=== PATIENT | female | born 1995 | race Caucasian/White ===

== ENCOUNTER 2017-11-27 17:34 | Observation (INO) | payer OTHER ==
[2017-11-27 18:46] LABS: #Lymphocytes 1.9 thou/uL (1.20-3.40); #Monocytes 1.3 thou/uL (0.11-0.59); #Neutrophils 13.3 thou/uL (1.40-6.50); %Basophils 0.2 % (0.0-1.0); %Eosinophils 0.1 % (0.0-10.0); %Lymphocytes 11.6 % (21.0-51.0); %Monocytes 7.7 % (0.0-10.0); %Neutrophils 80.4 % (42.0-75.0); Hemoglobin 12.3 g/dL (12.0-16.0); Mean Corpuscular HGB CONC 35.1 g/dL (32.0-36.0); Mean Corpuscular Volume 94.2 fL (78.0-98.0); Mean Platelet Volume 8.3 fL (7.4-10.4); Platelet Count 158 thou/uL (130-400); RBC Distribution Width 11.7 % (11.5-14.5); Red Blood Cell (RBC) Count 3.72 mill/uL (4.20-5.40); White Blood Cell (WBC) Count 16.5 thou/uL (4.8-10.8)
[2017-11-27 18:49] LABS: BHCG - Serum POSITIVE (NEGATIVE); Pregs Control Background? CLEAR/WHITE (CLR/WHITE); Pregs Control Bar Appear? YES (CONTROL BAR)
[2017-11-27 18:52] LABS: Bilirubin Negative (Negative); Blood, Urine Small (Negative); Clarity TURBID (Clear); Glucose, Urine (Dipstick) Negative (Negative); Leukocyte Large (Negative); Nitrite Positive (Negative); Protein, Urine (Dipstick) 100 mg/dL (Neg-Trace); Specific Gravity, Urine 1.017 (1.002-1.036); pH, Urine 5.5 (5.0-9.0)
[2017-11-27 18:54] LABS: Bacteria/HPF 4+ HPF (None Seen); Hyaline Casts/LPF 0-3 HYALINE CAST LPF (0-3 Hyaline); Pathc Cast-AUWi Flag 0.72 (0-2.49); Squamous Epithelial 0-3 HPF (0-3)
[2017-11-27 19:06] LABS: ALT (SGPT) 11 U/L (8-55); AST (SGOT) 15 U/L (5-34); Albumin 3.7 g/dL (3.5-5.0); Alkaline Phosphatase 70 U/L (40-150); Anion Gap 16 mmol/L (10-20); BUN (Urea Nitrogen) 6 mg/dL (7.0-18.7); Bilirubin, Total 0.5 mg/dL (0.2-1.2); Calc. Creatinine Clearance 0 mL/min (70-130); Carbon Dioxide 24 mmol/L (22-29); Chloride 94 mmol/L (98-107); Estimated GFR-MDRD Greater than 90; Globulin 3.6 g/dL (2.4-3.5); Glucose 115 mg/dL (70-105); Protein, Total 7.3 g/dL (6.0-8.3); Sodium 131 mmol/L (136-145)
[2017-11-27 19:13] LABS: Potassium 2.5 mmol/L (3.5-5.1)
[2017-11-27] MEDS ORDERED: Ondansetron ODT 4 MG TAB ONE (19:29)
[2017-11-27] MEDS ORDERED: cefTRIAXone\\ROCEPHIN 1 GM VIAL ONE (19:29)
[2017-11-27] MEDS ORDERED: cefTRIAXone\\ROCEPHIN 2 GM in Sodium Chloride 0.9% 100 ML IVPB ONE (19:45)
[2017-11-27] MEDS ORDERED: Ondansetron HCl/PF 4 MG/2 ML Vial IVP PRN (19:55)
[2017-11-27] MEDS ORDERED: Lactated Ringer's 1,000 ML IV SCH ×2 (20:00)
[2017-11-27] MEDS: Acetaminophen 500 MG TAB PO PRN (20:52)
[2017-11-27 21:12] LABS: #Basophils 0.1 thou/uL (0.0-0.2); #Lymphocytes 2.4 thou/uL (1.20-3.40); #Monocytes 1.2 thou/uL (0.11-0.59); #Neutrophils 11.2 thou/uL (1.40-6.50); %Basophils 0.5 % (0.0-1.0); %Eosinophils 0.2 % (0.0-10.0); %Lymphocytes 16.3 % (21.0-51.0); %Monocytes 7.9 % (0.0-10.0); %Neutrophils 75.1 % (42.0-75.0); Hemoglobin 11.1 g/dL (12.0-16.0); Mean Corpuscular HGB CONC 35.3 g/dL (32.0-36.0); Mean Corpuscular Hemoglobin 33.3 pg (27.0-31.0); Mean Corpuscular Volume 94.3 fL (78.0-98.0); Platelet Count 154 thou/uL (130-400); RBC Distribution Width 11.6 % (11.5-14.5); Red Blood Cell (RBC) Count 3.33 mill/uL (4.20-5.40); White Blood Cell (WBC) Count 14.9 thou/uL (4.8-10.8)
[2017-11-27] MEDS: Sodium Chloride 0.9% 1,000 ML IV SCH ×2 (21:35→22:58)
--- NOTE | 2017-11-27 21:53 | ULT ---
RENAL ULTRASOUND: 11/27/17 COMPARISON: None. HISTORY: Right flank pain. Patient is 19 weeks . Urinary tract infection. TECHNIQUE: Multiplanar cross scale and color doppler images were obtained in a renal ultrasound. FINDINGS: The kidneys are normal in echogenicity without hydronephrosis or shadowing calculi. The kidneys measu re 13.0 and 13.1 cm in length on the right and left, respectively. A small amount of sediment is seen in the urinary bladder. Both ureteral jets were visualized. IMPRESSION: No significant abnormality. POS: [facility]I
[2017-11-27] MEDS ORDERED: Potassium Chloride 20 MEQ TAB ONE (21:58)
[2017-11-27 22:52] VITALS: BMI 28.4
[2017-11-27] MEDS ORDERED: Potassium Chloride 20 MEQ TAB PO SCH (23:30)
[2017-11-28] MEDS: Sodium Chloride 0.9% 1,000 ML IV SCH ×4 (00:10→15:12)
--- NOTE | 2017-11-28 01:24 | HP ---
DATE OF SERVICE: 11/27/2017 CHIEF COMPLAINT: Right-sided flank pain. HISTORY OF PRESENT ILLNESS: A 22-year-old G1 at 20w0d by LMP who presented to the emergency department for flank pain on the right side. She reports the pain has been present about 4 days. The pain is dull in nature and had been worsening over the last few days. She has had chills as well as nausea and vomiting. She does have dysuria, frequency, and hesitancy as well. Nothing makes the pain better, but she has not tried any medication. REVIEW OF SYSTEMS: Negative for head, eyes, ears, nose, throat, cardiovascular , respiratory, GI, , neuro, psych, musculoskeletal, skin or constitutional symptoms other than mentioned above. PAST MEDICAL HISTORY: Depression. PAST SURGICAL HISTORY: Negative. MEDICATIONS: None. ALLERGIES: No known drug allergies. SOCIAL HISTORY: Negative for tobacco or alcohol abuse. 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 FAMILY HISTORY: Noncontributory. PHYSICAL EXAMINATION: VITAL SIGNS: Temperature 100.1. Vital signs are stable with mild tachycardia. GENERAL: Awake, alert, in no acute distress. CHEST: Nonlabored breathing. ABDOMEN: Soft, gravid, nontender to palpation. BACK: With right-sided CVA tenderness. PELVIC: Deferred. LABORATORY DATA: WBC 16.5, hemoglobin 12.3, hematocrit 35.0, platelets 158, 000. Neutrophils 80.4, no bands. Chemistry: Sodium 131, potassium 2.5, chloride 94, creatinine 0.66, glucose 115. Urine, nitrite positive, large leukocyte esterase, greater than 50 wbc's, 4+ bacteria. ASSESSMENT AND PLAN: A 22-year-old G1 at approximately 20w0d with early right- sided pyelonephritis. She will be placed in observation for Rocephin and IV fluids. Hypokalemia was also noted on admission and she has received 60 mEq of p.o. potassium in the emergency department. She will receive a dose of 40 mEq of potassium chloride and approximately 4 hours. We will repeat a CBC and BMP in the morning. Urine culture is pending. We will get heart tones every shift. Dr. Adler will be notified. [facility]ITALRoyce
[2017-11-28] MEDS: Acetaminophen 500 MG TAB PO PRN ×3 (02:25→21:18)
[2017-11-28 05:35] LABS: #Lymphocytes 1.9 thou/uL (1.20-3.40); %Basophils 0.2 % (0.0-1.0); %Eosinophils 0.3 % (0.0-10.0); %Monocytes 8.6 % (0.0-10.0); %Neutrophils 74.9 % (42.0-75.0); Hemoglobin 9.5 g/dL (12.0-16.0); Mean Corpuscular HGB CONC 35.2 g/dL (32.0-36.0); Mean Corpuscular Hemoglobin 33.4 pg (27.0-31.0); Mean Corpuscular Volume 94.9 fL (78.0-98.0); Mean Platelet Volume 8.2 fL (7.4-10.4); Platelet Count 137 thou/uL (130-400); RBC Distribution Width 11.7 % (11.5-14.5); Red Blood Cell (RBC) Count 2.84 mill/uL (4.20-5.40)
[2017-11-28 05:40] LABS: Anion Gap 9 mmol/L (10-20); BUN (Urea Nitrogen) 5 mg/dL (7.0-18.7); Calc. Creatinine Clearance 194 mL/min (70-130); Calcium 7.7 mg/dL (7.8-10.44); Carbon Dioxide 23 mmol/L (22-29); Chloride 106 mmol/L (98-107); Estimated GFR-MDRD Greater than 90; Glucose 94 mg/dL (70-105); Sodium 135 mmol/L (136-145)
[2017-11-28 05:41] LABS: Potassium 2.9 mmol/L (3.5-5.1)
[2017-11-28] MEDS: Potassium Chloride 20 MEQ TAB PO SCH ×3 (07:59→16:59)
[2017-11-28] MEDS: Magnesium Oxide 400 MG TAB PO SCH ×2 (08:00→11:13)
[2017-11-28] MEDS ORDERED: cefTRIAXone\\ROCEPHIN 2 GM in Sodium Chloride 0.9% 100 ML IVPB SCH (19:30)
[2017-11-29] MEDS: Sodium Chloride 0.9% 1,000 ML IV SCH ×2 (00:22→10:15)
[2017-11-29 04:02] VITALS: BP 87/56
[2017-11-29 05:02] LABS: #Eosinphils 0.1 thou/uL (0.0-0.7); #Lymphocytes 1.9 thou/uL (1.20-3.40); #Monocytes 0.6 thou/uL (0.11-0.59); #Neutrophils 7.3 thou/uL (1.40-6.50); %Basophils 0.3 % (0.0-1.0); %Eosinophils 1.4 % (0.0-10.0); %Lymphocytes 19.1 % (21.0-51.0); %Monocytes 6.4 % (0.0-10.0); %Neutrophils 72.8 % (42.0-75.0); Hemoglobin 9.8 g/dL (12.0-16.0); Mean Corpuscular HGB CONC 34.5 g/dL (32.0-36.0); Mean Corpuscular Hemoglobin 33.2 pg (27.0-31.0); Mean Corpuscular Volume 96.3 fL (78.0-98.0); Mean Platelet Volume 8.2 fL (7.4-10.4); Platelet Count 156 thou/uL (130-400); RBC Distribution Width 12.1 % (11.5-14.5); Red Blood Cell (RBC) Count 2.96 mill/uL (4.20-5.40)
[2017-11-29 05:34] LABS: Anion Gap 12 mmol/L (10-20); BUN (Urea Nitrogen) 4 mg/dL (7.0-18.7); Calc. Creatinine Clearance 210 mL/min (70-130); Calcium 8.2 mg/dL (7.8-10.44); Carbon Dioxide 21 mmol/L (22-29); Chloride 109 mmol/L (98-107); Estimated GFR-MDRD Greater than 90; Glucose 80 mg/dL (70-105); Potassium 3.9 mmol/L (3.5-5.1); Sodium 138 mmol/L (136-145)
[2017-11-29 08:29] VITALS: TEMP 98.2
[2017-11-29] MEDS: Acetaminophen 500 MG TAB PO PRN (09:19)
[2017-11-29] MEDS: Potassium Chloride 20 MEQ TAB PO SCH (10:15)
== END 2017-11-29 14:30 | disposition home or self-care (01) ==
LOC: ERS 17:34 → 3SW 20:35
PROVIDERS: ADMIT Obstetrics & Gynecology; ATTEND Obstetrics & Gynecology
DX: O23.02 Infections of kidney in pregnancy, second trimester (principal); Z3A.20 20 weeks gestation of pregnancy
CPT/HCPCS: 36415; 76770; 80048; 80053; 81003; 81015; 83735; 84703; 85025; 87077; 87086; 87186; 96361; 96365; 96366; 96375; 96376; G0378; J0696; J2270; J2405; J7050; Q0162

== ENCOUNTER 2018-04-07 05:30 | Inpatient (IN) | payer OTHER ==
[2018-04-07] MEDS ORDERED: Methylergonovine 0.2 MG/ML VIAL IM PRN (06:11)
[2018-04-07] MEDS ORDERED: Lidocaine 1% (PF) 30 ML VIAL SC PRN (06:11)
[2018-04-07] MEDS ORDERED: HYDROcodone/Acetaminophen 5/325 mg Tablet PO PRN (06:11)
[2018-04-07] MEDS ORDERED: Butorphanol Tartrate 1 MG/ML VIAL SLOW IVP PRN (06:11)
[2018-04-07] MEDS ORDERED: Ibuprofen 800 MG TAB PO PRN (06:11)
[2018-04-07] MEDS ORDERED: Diphenoxylate HCl/Atropine Tablet PO PRN (06:11)
[2018-04-07] MEDS ORDERED: Misoprostol 200 MCG TAB PR PRN (06:11)
[2018-04-07] MEDS ORDERED: NS w/ Oxytocin 10 units 500 ML IV SCH ×2 (06:11)
[2018-04-07] MEDS ORDERED: Carboprost 250 MCG/ML AMP IM PRN (06:11)
[2018-04-07] MEDS ORDERED: Ondansetron PF 4 MG/2 ML Vial IVP PRN ×2 (06:11→10:30)
[2018-04-07] MEDS: Lactated Ringer's 1,000 ML IV SCH ×3 (06:20→18:43)
[2018-04-07] MEDS ORDERED: Penicillin G Potassium 5 MILL.UNITS in Sodium Chloride 0.9% 100 ML IVPB SCH (06:30)
[2018-04-07 06:39] VITALS: BMI 37.9
[2018-04-07 06:58] LABS: Hemoglobin 12.4 g/dL (12.0-16.0); Mean Corpuscular HGB CONC 33.7 g/dL (32.0-36.0); Mean Corpuscular Hemoglobin 31.8 pg (27.0-31.0); Mean Corpuscular Volume 94.4 fL (78.0-98.0); Mean Platelet Volume 10.1 fL (7.4-10.4); Platelet Count 124 thou/uL (130-400); RBC Distribution Width 12.5 % (11.5-14.5); Red Blood Cell (RBC) Count 3.88 mill/uL (4.20-5.40); White Blood Cell (WBC) Count 11.6 thou/uL (4.8-10.8)
[2018-04-07 07:46] LABS: Syphilis Antibody Nonreactive (Nonreactive); Syphilis Antibody Index 0.03 S/CO (<1.00 Non-Reactive)
[2018-04-07 07:47] LABS: HBSAg Index 0.24 S/CO (0-0.99); Hep B Surf Ag Non-Reactive S/CO (NonReactive)
[2018-04-07] MEDS ORDERED: Fentanyl 4 mcg/Bup 0.1% Cadd 0 ML ONE (09:32)
[2018-04-07] MEDS ORDERED: Fentanyl 4 mcg/Bup 0.1% Cadd 100 ML ONE ×2 (09:33→16:41)
[2018-04-07] MEDS ORDERED: Naloxone HCl 0.4 mg/ml Vial IVP PRN ×2 (10:30)
[2018-04-07] MEDS ORDERED: Fentanyl 4 mcg/Bupivacaine 0.1% Cassette 100 ML EPIDURAL SCH (10:30)
[2018-04-07] MEDS ORDERED: Acetaminophen 325 MG TAB PO PRN (10:30)
[2018-04-07] MEDS ORDERED: Communication Order-Pharmacy FS SCH (10:30)
[2018-04-07] MEDS ORDERED: ePHEDrine/0.9% NaCl/PF SYRINGE 50 mg/10 ml SLOW IVP PRN (10:30)
[2018-04-07] MEDS ORDERED: Lactated Ringer's 500 ML IV PRN (10:30)
[2018-04-07] MEDS ORDERED: Eucerin (Mineral Oil/Petrolatum,White) 30 gm Jar TOP PRN (10:30)
[2018-04-07] MEDS ORDERED: diphenhydrAMINE 50 MG/ML VIAL IVP PRN (10:30)
[2018-04-07] MEDS ORDERED: Promethazine HCl 25 MG/ML VIAL IM PRN (10:30)
[2018-04-07] MEDS: Penicillin G 2.5 MILL.units 2.5 MILL.UNITS in Premix Bag 1 BAG IVPB SCH ×3 (11:16→19:15)
[2018-04-07] MEDS ORDERED: Lidocaine 1.5%/Epinephrine 1:200,000 5 ML AMPUL IJ ONE (18:11)
[2018-04-07] MEDS ORDERED: Lidocaine 1% w/Epinephrine 1:100K 20 ML VIAL IJ SCH (18:30)
[2018-04-07] MEDS ORDERED: Bupivacaine 0.25% HCL 30 ML VIAL ONE (21:00)
[2018-04-07] MEDS: NS / Oxytocin 40 units/1000ml 1,000 ML IV PRN ×2 (22:00→23:34)
[2018-04-08] MEDS ORDERED: diphenhydrAMINE 25 MG CAP PO PRN (00:34)
[2018-04-08] MEDS ORDERED: Preparation H Ointment 28 GM TUBE PR PRN (00:34)
[2018-04-08] MEDS ORDERED: HYDROcodone/Acetaminophen 5/325 mg Tablet PO PRN ×2 (00:34)
[2018-04-08] MEDS ORDERED: Milk Of Magnesia 30 ML UDCUP PO PRN (00:34)
[2018-04-08] MEDS ORDERED: Lanolin Ointment 7 GM TUBE TOP PRN (00:34)
[2018-04-08] MEDS ORDERED: Ondansetron PF 4 MG/2 ML Vial IVP PRN (00:34)
[2018-04-08] MEDS ORDERED: Bisacodyl 10 MG SUPP PR PRN (00:34)
[2018-04-08] MEDS ORDERED: NS / Oxytocin 40 units/1000ml 1,000 ML IV SCH (00:34)
[2018-04-08] MEDS ORDERED: Benzocaine/Menthol 20-0.5% 60 ML CAN TOP PRN (00:34)
[2018-04-08] MEDS: Ibuprofen 800 MG TAB PO SCH ×3 (05:51→21:58)
[2018-04-08 06:28] LABS: Hemoglobin 8.8 g/dL (12.0-16.0); Mean Corpuscular HGB CONC 34.1 g/dL (32.0-36.0); Mean Corpuscular Hemoglobin 32.6 pg (27.0-31.0); Mean Corpuscular Volume 95.7 fL (78.0-98.0); Mean Platelet Volume 10.4 fL (7.4-10.4); Platelet Count 119 thou/uL (130-400); RBC Distribution Width 12.5 % (11.5-14.5); White Blood Cell (WBC) Count 14.9 thou/uL (4.8-10.8)
[2018-04-08] MEDS: Penicillin G 2.5 MILL.units 2.5 MILL.UNITS in Premix Bag 1 BAG IVPB SCH (06:36)
[2018-04-08] MEDS: Ferrous Sulfate 325 MG TAB PO SCH ×2 (09:17→17:48)
[2018-04-08] MEDS: Prenatal Vitamin 1 TAB PO SCH (09:18)
[2018-04-08] MEDS: Docusate Calcium (SURFAK) 240 MG CAP PO SCH ×2 (09:18→21:59)
[2018-04-09] MEDS: Ibuprofen 800 MG TAB PO SCH ×2 (06:01→14:20)
[2018-04-09 09:17] VITALS: BP 116/72; TEMP 98.6
[2018-04-09] MEDS: Docusate Calcium (SURFAK) 240 MG CAP PO SCH (09:38)
[2018-04-09] MEDS: Ferrous Sulfate 325 MG TAB PO SCH (09:38)
[2018-04-09] MEDS: Prenatal Vitamin 1 TAB PO SCH (09:38)
[2018-04-09] MEDS ORDERED: Measles/Mumps/Rubella 10 MCG/0.5 ML VIAL SC ONE (15:00)
== END 2018-04-09 17:40 | disposition home or self-care (01) | DRG 807 ==
LOC: L&D 05:49 → 3SW 04-08 00:59
PROVIDERS: ADMIT Family Medicine; ATTEND Family Medicine
PROC: 10E0XZZ Delivery of Products of Conception, External Approach (ICD-10-PCS; principal; 2018-04-07)
PROC: 10907ZC Drainage of Amniotic Fluid, Therapeutic from Products of Conception, Via Natural or Artificial Opening (ICD-10-PCS; 2018-04-07)
PROC: 0W8NXZZ Division of Female Perineum, External Approach (ICD-10-PCS; 2018-04-07)
DX: O99.824 Streptococcus B carrier state complicating childbirth (principal); Z37.0 Single live birth; Z3A.39 39 weeks gestation of pregnancy; O72.1 Other immediate postpartum hemorrhage; O76 Abnormality in fetal heart rate and rhythm complicating labor and delivery; O32.1XX0 Maternal care for breech presentation, not applicable or unspecified; O70.9 Perineal laceration during delivery, unspecified
CPT/HCPCS: 36415; 51702; 85027; 86780; 86850; 86900; 86901; 87340; 90707; J2001; J2540; J3490; J7050; S0020